=== PATIENT | female | born 1960 | race Caucasian/White ===

== ENCOUNTER 2016-12-27 19:51 | Emergency (ER) | payer MEDICAID ==
[~2016-12-27] VITALS: Ht 152.4 cm; Wt 90.7 kg
[2016-12-27 19:51] VITALS: BP_SYST 171
[2016-12-27] MEDS ORDERED: IBUPROFEN 800 MG TABLET PO ONE (21:15)
[2016-12-27] MEDS ORDERED: KETOROLAC TROMETHAMINE 60 MG/2 ML VIAL IM ONE (21:15)
[2016-12-27 21:50] VITALS: BP_SYST 152
== END 2016-12-27 21:50 | disposition home or self-care (01) ==
LOC: SED 19:51
DX: S93.402A Sprain of unspecified ligament of left ankle, initial encounter (principal); X50.1XXA Overexertion from prolonged static or awkward postures, initial encounter; Y93.89 Activity, other specified; Y99.8 Other external cause status; Y92.096 Garden or yard of other non-institutional residence as the place of occurrence of the external cause
CPT/HCPCS: 29515; 73610; 81025; 96372; 99284; J1885

== ENCOUNTER 2018-01-13 12:34 | Emergency (ER) | payer MEDICAID ==
[~2018-01-13] VITALS: Ht 152.4 cm; Wt 90.7 kg
[2018-01-13 12:39] VITALS: BP_SYST 158
[2018-01-13] MEDS ORDERED: KETOROLAC TROMETHAMINE 60 MG/2 ML VIAL IM ONE (13:00)
[2018-01-13 13:31] VITALS: BP_SYST 144
== END 2018-01-13 13:31 | disposition home or self-care (01) ==
LOC: SED 12:34
DX: S13.4XXA Sprain of ligaments of cervical spine, initial encounter (principal); D17.0 Benign lipomatous neoplasm of skin and subcutaneous tissue of head, face and neck; D17.1 Benign lipomatous neoplasm of skin and subcutaneous tissue of trunk; R03.0 Elevated blood-pressure reading, without diagnosis of hypertension; Z90.49 Acquired absence of other specified parts of digestive tract; Z90.89 Acquired absence of other organs; X58.XXXA Exposure to other specified factors, initial encounter; Y93.89 Activity, other specified; Y92.89 Other specified places as the place of occurrence of the external cause; Y99.8 Other external cause status
CPT/HCPCS: 96372; 99283; J1885